=== PATIENT | female | born 1985 | race Caucasian/White ===

== ENCOUNTER 2022-05-11 09:50 | Inpatient (IN) | payer OTHER ==
[~2022-05-11] VITALS: Ht 160 cm; Wt 77.3 kg
[2022-05-11 10:08] VITALS: BP 124/62
[2022-05-11 11:18] LABS: BILIRUBIN Negative (Negative); BLOOD Negative (Negative); CLARITY Cloudy (Clear); COLOR Yellow (Yellow); GLUCOSE Negative (Negative); KETONE Negative (Negative); LEUKO ESTERASE 1+ (Negative); NITRITE Negative (Negative); SPECIFIC GRAVITY 1.015 (1.001-1.030)
[2022-05-11 11:26] LABS: URINE AMPHETAMINES > 1000 (1000ng/ml); URINE BARBITURATES < 200 (200ng/ml); URINE BENZODIAZEPINES > 200 (200ng/ml); URINE CANNABINOIDS (THC) < 50 (50ng/ml); URINE COCAINE > 300 (300ng/ml); URINE METHADONE < 300 (300ng/ml); URINE OPIATES < 300 (300ng/ml)
[2022-05-11 11:29] LABS: BACTERIA 3+
[2022-05-11 11:30] LABS: URINE PHENCYCLIDINE < 25 (25ng/ml)
[2022-05-11 13:07] VITALS: BP 112/63
[2022-05-11 16:00] VITALS: BP 105/50
[2022-05-11 20:00] VITALS: BP 100/63
[2022-05-12] VITALS: BP 101/64
[2022-05-12 05:58] LABS: ALKALINE PHOSPHATASE 46 U/L (45-117); BUN 10 mg/dl (7-24); CHLORIDE 111 mmol/L (98-107); CHOLESTEROL 136 mg/dL (<200); CREATININE 0.64 mg/dL (0.55-1.02); FREE T4 0.94 ng/dl (0.76-1.46); LDL CHOLESTEROL 72 mg/dL (9-159); POTASSIUM 3.6 mmol/L (3.5-5.1); SGOT/AST 15 IU/L (3-35); SGPT/ALT 16 U/L (12-78); SODIUM 143 mmol/L (136-145); TOTAL PROTEIN 6.9 gm/dL (6.4-8.2); TRIGLYCERIDES 50 mg/dl (<150)
[2022-05-12 06:03] LABS: THYROID STIM HORMONE (HS) 0.559 uIU/ml (0.358-4.75)
[2022-05-12 06:05] LABS: BASO % 0.5 % (0.0-1.0); EOS % 0.4 % (1.0-4.0); HEMATOCRIT 36.4 % (37.0-47.0); LYMPH % 17.6 % (27.0-41.0); MEAN CORPUSCULAR HGB 30.1 pg (27.0-31.0); MEAN CORPUSCULAR HGB CONC 33.8 g/dl (33.0-37.0); MEAN PLATELET VOLUME 11.2 fl (9.6-12.3); MONO # 0.2 10*3/uL (0.1-1.0); MONO % 3.8 % (3.0-9.0); NEUT # 4.2 10*3/uL (2.3-7.9); NEUT % 77.3 % (47.0-73.0); PLATELET COUNT AUTOMATED 225 10*3/uL (130-400); RED BLOOD COUNT 4.09 10*6/uL (4.10-5.10); RED CELL DISTRI WIDTH 13.1 % (0-14.5); WHITE BLOOD COUNT 5.5 10*3/uL (4.8-10.8)
[2022-05-12 08:00] VITALS: BP 109/80
[2022-05-12 12:00] VITALS: BP 101/56
[2022-05-12 16:00] VITALS: BP 112/57
[2022-05-12 20:00] VITALS: BP 116/77
[2022-05-13] VITALS: BP 110/60
[2022-05-13 08:00] VITALS: BP 116/57
[2022-05-13 12:00] VITALS: BP 110/60
[2022-05-13] MEDS ORDERED: ATARAX,VISTARIL50 MG PO (12:37)
[2022-05-13] MEDS ORDERED: ZOFRAN4 MG PO (12:37)
[2022-05-13] MEDS ORDERED: XANAX1 MG PO (13:24)
== END 2022-05-13 14:32 | disposition home or self-care (01) | DRG 773 ==
LOC: ED 09:50 → EDHOLD 11:57 → 5E 11:57 → 4E 11:57 → EDHOLD 12:17 → 4E 12:40 → 5E 05-13 00:49
PROVIDERS: Internal Medicine; Physician Assistant; ADMIT Student in an Organized Health Care Education/Training Program; ATTEND Student in an Organized Health Care Education/Training Program
DX: F11.13 Opioid abuse with withdrawal (principal); F15.10 Other stimulant abuse, uncomplicated; E66.9 Obesity, unspecified; F13.10 Sedative, hypnotic or anxiolytic abuse, uncomplicated; F19.239 Other psychoactive substance dependence with withdrawal, unspecified; F17.200 Nicotine dependence, unspecified, uncomplicated; F41.9 Anxiety disorder, unspecified; F14.13 Cocaine abuse, unspecified with withdrawal; F15.13 Other stimulant abuse with withdrawal; Z98.891 History of uterine scar from previous surgery; Z71.6 Tobacco abuse counseling; Z68.30 Body mass index [BMI] 30.0-30.9, adult; F11.10 Opioid abuse, uncomplicated

== ENCOUNTER 2022-07-23 18:19 | Emergency (ER) | payer OTHER ==
[~2022-07-23 18:19] MED LIST: ATARAX,VISTARIL50 MG PO; XANAX1 MG PO; ZOFRAN4 MG PO
[2022-07-23 19:43] LABS: BASO % 0.5 % (0.0-1.0); HEMATOCRIT 37.4 % (37.0-47.0); LYMPH # 1.1 10*3/uL (1.3-4.4); MEAN CELL VOLUME 92.6 fl (81.0-99.0); MEAN CORPUSCULAR HGB 31.2 pg (27.0-31.0); MEAN CORPUSCULAR HGB CONC 33.7 g/dl (33.0-37.0); MEAN PLATELET VOLUME 10.6 fl (9.6-12.3); MONO # 0.2 10*3/uL (0.1-1.0); MONO % 3.3 % (3.0-9.0); NEUT # 5.1 10*3/uL (2.3-7.9); PLATELET COUNT AUTOMATED 246 10*3/uL (130-400); RED BLOOD COUNT 4.04 10*6/uL (4.10-5.10); RED CELL DISTRI WIDTH 12.9 % (0-14.5); WHITE BLOOD COUNT 6.4 10*3/uL (4.8-10.8)
[2022-07-23 20:00] LABS: ALKALINE PHOSPHATASE 52 U/L (45-117); BUN 10 mg/dl (7-24); CHLORIDE 111 mmol/L (98-107); CREATININE 0.74 mg/dL (0.55-1.02); POTASSIUM 3.8 mmol/L (3.5-5.1); SGOT/AST 14 IU/L (3-35); SGPT/ALT 16 U/L (12-78); SODIUM 139 mmol/L (136-145); TOTAL PROTEIN 7.2 gm/dL (6.4-8.2)
[2022-07-23 20:06] LABS: ACETAMINOPHEN (TYLENOL) < 5.0 ug/ml (10-30); ETHYL ALCOHOL < 3.0 mg/dl (<3)
[2022-07-23 21:21] LABS: BILIRUBIN Negative (Negative); BLOOD 1+ (Negative); CLARITY Clear (Clear); COLOR Yellow (Yellow); GLUCOSE Negative (Negative); KETONE Trace (Negative); LEUKO ESTERASE Negative (Negative); NITRITE Negative (Negative); PH 7.5 (4.5-8.0); SPECIFIC GRAVITY <= 1.005 (1.001-1.030); UROBILINOGEN 0.2 E.U./dl (0.0-1.0)
[2022-07-23 21:37] LABS: BACTERIA TRACE; RBC 0-2 rbc/hpf (0-2)
[2022-07-23] MEDS ORDERED: ONDANSETRON4 MG SL (21:44)
[2022-07-23 22:07] LABS: URINE AMPHETAMINES > 1000 (1000ng/ml); URINE BARBITURATES > 200 (200ng/ml); URINE BENZODIAZEPINES < 200 (200ng/ml); URINE CANNABINOIDS (THC) < 50 (50ng/ml); URINE COCAINE < 300 (300ng/ml); URINE METHADONE < 300 (300ng/ml); URINE OPIATES < 300 (300ng/ml)
[2022-07-23 22:08] LABS: URINE PHENCYCLIDINE < 25 (25ng/ml)
== END 2022-07-23 22:45 | disposition home or self-care (01) ==
LOC: ED 18:19
PROVIDERS: Nurse Practitioner Family
DX: F19.239 Other psychoactive substance dependence with withdrawal, unspecified (principal); R11.2 Nausea with vomiting, unspecified; R10.9 Unspecified abdominal pain; F17.200 Nicotine dependence, unspecified, uncomplicated; Z79.899 Other long term (current) drug therapy; Z98.890 Other specified postprocedural states; Z98.51 Tubal ligation status